=== PATIENT | male | born 1955 | race Caucasian/White ===

== ENCOUNTER 2017-09-26 07:41 | Day surgery (SDC) | payer BC ==
[~2017-09-26 07:41] MED LIST: LIDOCAINE HCL 1% MPF SOL ONE; PROPOFOL 500 MG/50 ML EMU IV ONE
[2017-09-26 08:38] VITALS: O2SAT 98
[2017-09-26 08:50] VITALS: BP 149/84; PULSE 68; RESP 18; TEMP 97.6
== END 2017-09-26 09:13 | disposition home or self-care (01) ==
LOC: SURG 07:41
PROVIDERS: ATTEND Surgery
DX: Z12.11 Encounter for screening for malignant neoplasm of colon (principal); D12.8 Benign neoplasm of rectum; K57.30 Diverticulosis of large intestine without perforation or abscess without bleeding
CPT/HCPCS: 99001; J2001; J2704